=== PATIENT | male | born 1940 | race Caucasian/White ===

== ENCOUNTER 2017-06-25 14:09 | Observation (INO) ==
--- OUTSIDE RECORDS SUMMARY | 2017-06-25 14:57 | External Medical Summary ---
:1940 Author Organization e[employer] Care Team Providers Name Role Phone Bassam Barger Provider Role Unavailable Allergies No Known Allergies Problems Problem Type Condition Code Onset Dates Condition Status Problem Proteinuria 791.0 Active Assessment Other specified idiopathic 356.8 Active peripheral neuropathy Problem Esophageal reflux 530.81 Active Problem Need for prophylactic vaccination V04.89 Active and inoculation, Other viral diseases Problem Hypertension, benign 401.1 Active Problem Diabetes mellitus without mention of 250.02 Active complication, type II or unspecified type, uncontrolled Problem Unspecified essential hypertension 401.9 Active Problem Other specified idiopathic 356.8 Active peripheral neuropathy Problem Depressive disorder, not elsewhere 311 Active classified Medications Medication Code Code Instructions Start End Status Dosage System Date Date Fluoxetine HCl [facility] [id number] 10 Orally Once 1 capsule a day in the morning Glimepiride [facility] [id number] 4 Orally Once a TAKE ONE day TABLET BY MOUTH DAILY Gabapentin [facility] [id number] 100 Orally BID 2 caps Results No Known Results Summary Purpose eClinicalWorks Submission
[2017-06-25] MEDS ORDERED: SALINE FLUSH 10ml SYRINGE IVF PRN (14:59)
--- NOTE | 2017-06-25 14:59 | Emergency Department Report ---
General Adult HPI - General Chief complaint: Fall Stated complaint: fall to knees weak Lt hip Time Seen by Provider: 06/25/17 14:51 Source: patient, EMS Mode of arrival: EMS Limitations: no limitations - History of Present Illness HPI narrative: 77-year-old male presents to the emergency department with a chief complaint of increasing frequent falls over the past couple of weeks. Patient has had 3 falls today. He denies any pain or discomfort. Patient presents to the emergency department via EMS with his for further evaluation and treatment. Patient has no other complaints or associated symptoms at this time. He was at home when the incident occurred. He has been falling with increasing frequency over the past couple of weeks. is concerned that patient is a fall risk for serious injury at home. He denies striking his head , neck pain, or loss of consciousness. When the patient falls, he falls to his knees and is able to lower himself to the ground. - Related Data Home Medications Medication Instructions Recorded Confirmed Gabapentin 600 mg PO BID #0 04/03/16 06/25/17 Insulin Aspart [NovoLOG] 50 unit SQ BIDWM #0 05/27/16 06/25/17 Insulin Glargine,Hum.rec.anlog 60 unit SQ HS #0 05/27/16 06/25/17 [Lantus] Amlodipine [Norvasc] 5 mg PO DAILY 06/25/17 06/25/17 Fluoxetine HCl [Prozac] 40 mg PO DAILY 06/25/17 06/25/17 Lisinopril [Prinivil] 40 mg PO DAILY 06/25/17 06/25/17 Tamsulosin [Flomax] 0.4 mg PO HS 06/25/17 06/25/17 Allergies Allergy/AdvReac Type Severity Reaction Status Date / Time hydrocodone Allergy Intermediate ITCHING Verified 06/25/17 18:09 AND CONFUSION Review of Systems Constitutional: Reports: weakness (Generalized weakness). Denies: fever, chills Eyes: Denies: eye pain, vision change ENT: Denies: ear pain, throat pain Cardiovascular: Denies: chest pain, palpitations Respiratory: Denies: cough, dyspnea Gastrointestinal: Denies: abdominal pain, nausea, vomiting, diarrhea Genitourinary: Denies: urgency, dysuria Musculoskeletal: Denies: back pain, arthralgia Integumentary: Denies: erythema, rash Neurological: Denies: headache, numbness Psychiatric: Denies: anxiety, depression Endocrine: Denies: fatigue, heat or cold intolerance Hematological/Lymphatic: Denies: easy bruising, lymphadenopathy Allergic/Immunologic: Denies: urticaria, itchy eyes PFSH Patient Stated Medical History Peripheral Neuropathy Yes Hypertension Yes Diabetes Mellitus Type 1 Yes Depression Yes Bilateral Foot Drop Surgical History: Cholecystectomy. hemorrhoidectomy. Colonoscopy Family History: Reviewed and Noncontributory. - Social History Smoking status: Never smoker Substance use type: does not use Alcohol intake frequency: does not drink Physical Exam - Limitations Limitations: no limitations - General General appearance: alert, in no apparent distress - Normal Exams: Head:: Normocephalic without trauma Eyes:: Pupils are PERRLA w/ EOMI, No scleral icterus, irritation, or foreign bodies noted ENMT:: No facial trauma, nasal exudates, pharyngeal erythema, or exudates are noted Dental: No fractured, loose, or missing teeth noted Neck:: Full range of motion (no midline tenderness or deformity of the cervical spine.), without adenopathy, JVD, bruits or thyromegaly Chest/Respirations:: Clear all rizzo, with good airflow, and symmetry bilaterally Cardiovascular:: Regular rate and rhythm, without murmur or gallop, Pulses 2+ all extremities, capillary refill, <2 seconds all extremities Abdomen:: Bowel sounds positive, soft, non-tender, non-distended, no hepatosplenomegaly, masses or bruits noted Lymphatic:: No lymphadenopathy, or lymphedema noted Musculoskeletal:: No tenderness (no midline tenderness of the thoracic/lumbar spine. Pelvis is stable and nontender to compression.), or deformity noted, good range of motion, all extremities Integumentary:: No rashes, hives, or bruising noted, hair and nails, without abnormality Neurological:: Patient is alert, and oriented, cranial nerves, motor/sensory/ cerebellar, exams w/o gross deficits, to observation (+ chronic bilateral foot drop otherwise neurologically intact. ) Psychiatric:: Patient exhibits, appropriate attention, emotion and affect Course Vital Signs Temperature 98.2 F 06/25/17 14:15 Pulse Rate 92 06/25/17 14:15 Respiratory Rate 20 06/25/17 14:15 Blood Pressure 113/64 06/25/17 14:15 Pulse Oximetry 93 06/25/17 14:15 Temperature 95.6 F L 06/25/17 17:57 Pulse Rate 86 06/25/17 17:57 Respiratory Rate 18 06/25/17 17:57 Blood Pressure 163/94 H 06/25/17 17:57 Pulse Oximetry 95 06/25/17 17:57 Medical Decision Making - MDM Narrative Medical decision making narrative: Labs / Imaging were discussed in detail with the patient and family and questions are answered. Patient's is not comfortable taking the patient home as he has fallen multiple times today alone. Patient is given 500 mL of normal saline intravenously in the ED. patient is reviewed with Dr. Dalia Cavanaugh and accepted to her service for further evaluation and treatment. Patient is admitted to the hospital in improved condition. No further orders from accepting physician who is in agreement with the current plan of management. Patient declined offered analgesic pain medication in the emergency department. No source of infection at this time for antibiotic therapy at the time of admission to the hospital. UA is pending at the time of admission and will be followed by accepting physician. - Differential Diagnosis generalized weakness, dehydration, metabolic disorder, UTI, pneumonia - Lab Data Result diagrams: 06/25/17 15:36 06/25/17 15:36 Lab Results 06/25/17 06/25/17 Range/Units 15:36 15:36 WBC 5.5 (4.5-11.0) T/MM3 RBC 3.97 L (4.50-5.90) M/MM3 Hgb 12.7 L (13.5-17.5) GM/DL Hct 36.9 L (41-53) % MCV 92.9 (80-100) UM3 MCH 32.0 (26-34) UUG MCHC 34.4 (31-37) GM/DL RDW Std Deviation 41.3 (36.9-50.2) FL Plt Count 166 (130-400) T/MM3 MPV 9.3 L (9.4-12.4) UM3 Immature Gran % (Auto) 0.2 (0.0-0.5) % Neut % (Auto) 62.4 (33-66) % Lymph % (Auto) 25.5 (23-45) % Schleicher % (Auto) 7.7 (0-9.0) % Eos % (Auto) 3.3 (0-4) % Baso % (Auto) 0.9 (0-2) % Neut # (Auto) 3.4 (1.8-7.7) T/MM3 Lymph # (Auto) 1.4 (1-4.8) T/MM3 Schleicher # (Auto) 0.4 (0-0.8) T/MM3 Eos # (Auto) 0.2 (0-0.5) T/MM3 Baso # (Auto) 0.1 (0-0.2) T/MM3 Abs Immat Gran (auto) 0.01 (0.00-0.03) T/MM3 Turbidity < 20 (0-20) Sodium 139 (134-144) MEQ/L Potassium 4.3 (3.6-5) MEQ/L Chloride 101 (98-107) MEQ/L Carbon Dioxide 24 (22-30) MEQ/L Anion Gap 14 (5-15) MEQ/L BUN 21.0 H (9-20) MG/DL Creatinine 1.0 (0.8-1.5) mg/dL GFR Calculation 72 BUN/Creatinine Ratio 21 (6-26) RATIO Glucose 387 H (75-110) MG/DL Calculated Osmolality 287 H (261-280) MOSM/KG Calcium 9.3 (8.4-10.2) MG/DL Total Bilirubin 0.80 (0.20-1.30) MG/DL Icterus Index < 2 (0-7) AST 22 (17-59) U/L ALT 25 (1-50) U/L Alkaline Phosphatase 107 (38-126) U/L Troponin I < 0.012 (0-0.12) ng/ml Total Protein 6.9 (6.3-8.2) g/dL Albumin 3.6 (3.5-5.0) g/dL Globulin 3.3 (2.4-3.6) G/DL Albumin/Globulin Ratio 1.1 (1.1-2.2) RATIO Specimen Hemolysis < 15 (0-25) - Radiology Data CT Head - No acute processes. CXR - No acute processes. Pelvis XR - No acute processes. Bilateral Knee X-rays - Declined by patient. - EKG Data EKG #1 EKG results narrative: Sinus rhythm. 75 bpm. No STEMI. Normal EKG. Disposition Clinical Impression: Generalized weakness Disposition: 02 To [facility] Condition: Stable Time of Disposition: 16:20 (Admit. Dr. Cavanaugh. ) - Seen By: physician
--- NOTE | 2017-06-25 15:30 | CT Scan Report ---
Indication: frequent falls. PROCEDURE: CT head/brain wo con: Encounter: Initial Comparison: April 03, 2016 Technique: Axial CT images through the head were performed without contrast. Iterative Reconstruction dose reducing technique was utilized. FINDINGS: The ventricles are of normal size, shape, and configuration for the patient's age. There is no evidence of acute intracranial hemorrhage, midline displacement, or mass effect. There are multiple areas of low attenuation in the white matter which most likely represent changes of chronic microvascular ischemia. This has progressed from the comparison. The CT attenuation of the brain parenchyma is otherwise normal within the cerebellum, brain stem, and cerebral hemispheres. The tympanic cavities and mastoid air cells are free of appreciable disease. There are no definite fractures of the skull base, calvarium, or visualized portion of the midface. Right mastoid surgery. Small bilateral mastoid effusions. IMPRESSION: No CT evidence of acute traumatic intracranial injury. .
--- NOTE | 2017-06-25 15:36 | XRay Report ---
Indication: fall, pain PROCEDURE: XR pelvis 1-2V: Encounter: Initial Comparison: None Findings: There is no acute fracture, dislocation or malalignment identified. Impression: No acute osseous abnormality. .
--- NOTE | 2017-06-25 15:37 | XRay Report ---
Indication: weakness PROCEDURE: XR chest 1V: Encounter: Initial Comparison: October 28, 2016 FINDINGS: The lungs are clear. There is no abnormal airspace opacity, pleural effusion or pneumothorax identified. The heart size and mediastinum are within normal limits. No significant skeletal abnormality is seen. IMPRESSION: No acute cardiopulmonary abnormality. .
--- NOTE | 2017-06-25 17:30 | History & Physical Report ---
History of Present Illness Date: 06/25/17 Chief complaint: frequent falls HPI: Patient is a 77-year-old male who presents to the emergency room with frequent falls over the last 2 weeks. He has fallen 3 times today. He states that approximately 2 months ago he had a fall and ever since then he feels like his left hip "goes weak" and his left leg just gives out from underneath him. He usually walks with a walker. He lives at home independently with his . He does not have any lightheadedness or dizziness. He does have some pain from an abrasion on the right knee from his fall today. He does have peripheral neuropathy related to his diabetes. Review of Systems All systems PM: 10-point ROS was reviewed, no additional remarkable complaints except (R knee abrasion, chronic skin ulcerations, vitiligo, frequent falls) Past Medical History Patient Stated Medical History Peripheral Neuropathy Yes Hypertension Yes Diabetes Mellitus Type 2 Yes Depression Yes Medical History Updates: HLD Surgical History: cholecystectomy, tympanostomy and revision of tympanostomy right ear (due to chronic otitis media), hemorrhoidectomy Family History: Positive family history of diabetes Family History Updates: Reviewed. - Social History Smoking status: Former smoker Substance use type: does not use Alcohol intake frequency: does not drink Household members: spouse Current occupational status: retired Previous occupational history: owned [employer] Current residence: Apartment/Private Home Social history: Luisa Perez - PCP Medications Home Medications Medication Instructions Recorded Confirmed Type Gabapentin 600 mg PO BID #0 04/03/16 06/25/17 History Insulin Aspart [NovoLOG] 50 unit SQ BIDWM #0 05/27/16 06/25/17 History Insulin Glargine,Hum.rec.anlog 60 unit SQ HS #0 05/27/16 06/25/17 History [Lantus] Amlodipine [Norvasc] 5 mg PO DAILY 06/25/17 06/25/17 History Fluoxetine HCl [Prozac] 40 mg PO DAILY 06/25/17 06/25/17 History Lisinopril [Prinivil] 40 mg PO DAILY 06/25/17 06/25/17 History Tamsulosin [Flomax] 0.4 mg PO HS 06/25/17 06/25/17 History Allergies Allergy/AdvReac Type Severity Reaction Status Date / Time hydrocodone Allergy Intermediate ITCHING Verified 06/25/17 18:09 AND CONFUSION Exam Vital Signs: Temperature 98.2 F 06/25/17 14:15 Pulse Rate 74 06/25/17 16:15 Respiratory Rate 20 06/25/17 16:01 Blood Pressure 147/70 H 06/25/17 16:15 Pulse Oximetry 90 06/25/17 16:15 Height/Weight/BMI: Height 1.83 m Weight 104.5 kg - Constitutional Present: no acute distress, well nourished, well developed - Routine HEENT Exam Head: Present: normocephalic, atraumatic Eye: Present: EOMI, PERRL ENT: Present: mucous membranes moist, oropharynx clear - Routine Neck Exam Present: supple. Absent: lymphadenopathy, thyromegaly - Routine Respiratory Exam Present: CTA bilaterally. Absent: wheezes - Routine Cardiovascular Exam Present: RRR, no murmur - Routine Abdominal Exam Present: soft, normoactive bowel sounds, surgical scars. Absent: tenderness, distended - Routine Extremities Exam Present: normal capillary refill Comments: mild swelling of L foot and ankle. None to R. - Routine Skin Exam Present: dry, warm, vitiligo (to arms and chest, several ulcerations with scabs on arms, chest and 1 on R ant tibia. Dry skin and excoriation to LE's) - Routine Neurological Exam Present: alert, oriented X3, CN II-XII intact, moving all extremities, normal speech. Absent: motor deficit decreased sensation to feet b/l - Routine Psychiatric Exam Present: normal affect, cooperative Results - Labs CBC & Chem 7: 06/25/17 15:36 06/25/17 15:36 - Imaging and Cardiology CT scan - head Additional comments: Date of Exam: 06/25/17 Indication: frequent falls. PROCEDURE: CT head/brain wo con: FINDINGS: The ventricles are of normal size, shape, and configuration for the patient's age. There is no evidence of acute intracranial hemorrhage, midline displacement, or mass effect. There are multiple areas of low attenuation in the white matter which most likely represent changes of chronic microvascular ischemia. This has progressed from the comparison. The CT attenuation of the brain parenchyma is otherwise normal within the cerebellum, brain stem, and cerebral hemispheres. The tympanic cavities and mastoid air cells are free of appreciable disease. There are no definite fractures of the skull base, calvarium, or visualized portion of the midface. Right mastoid surgery. Small bilateral mastoid effusions. IMPRESSION: No CT evidence of acute traumatic intracranial injury. Chest x-ray Additional comments: Date of Exam: 06/25/17 Indication: weakness PROCEDURE: XR chest 1V: FINDINGS: The lungs are clear. There is no abnormal airspace opacity, pleural effusion or pneumothorax identified. The heart size and mediastinum are within normal limits. No significant skeletal abnormality is seen. IMPRESSION: No acute cardiopulmonary abnormality. pelvis xray Additional comments: Date of Exam: 06/25/17 Indication: fall, pain PROCEDURE: XR pelvis 1-2V: Findings: There is no acute fracture, dislocation or malalignment identified. Impression: No acute osseous abnormality. Assessment and Plan (1) Frequent falls Current visit: Yes Status: Acute (2) Diabetes mellitus Current visit: Yes Status: Acute Assessment and Plan: Assessment Frequent falls Diabetes mellitus-chronic insulin Hypertension BPH Osteoarthritis Vitiligo-question etiology Diabetic neuropathy Obesity (BMI 31.2) Plan Admit, observation, under the hospitalist service, Dr. Cavanaugh attending. Imaging and labs performed in ED reviewed. UA pending. PT/OT consults. IRU screen. Accu-Cheks. Diabetic diet. Continue home insulin. Consult wound clinic given the nonhealing wound on his lower right leg. Patient was bolused 500 mL normal saline in the emergency room. Patient has been eating and drinking well, no reason to continue IVF at this time. Continue amlodipine and lisinopril for blood pressure, tamsulosin for BPH, gabapentin for neuropathy. SCDs for DVT prophylaxis. Patient requests DO NOT RESUSCITATE CODE STATUS. Care to return to [facility] upon discharge. 06/25/2017-7:25 PM-I reviewed this chart, the patient history, and the [employer]'s/PA 's documented findings as above. We discussed and formulated the assessment and plan as above with the additions below.-Dr. Cavanaugh Patient was seen earlier this evening in his room. He states that he has had increased falls for the past 1 month and states that it always feels like his left leg in the hip area gives out on him and causes him to fall. He has chronic neuropathy with numbness and tingling and pain from his knees down to his feet. He denies any low back pain other than some mild pain in his right low back after one of his falls this past weekend. He denies feeling lightheaded when he falls. He has never lost consciousness or hit his head. He has been well this past winter and has avoided the flu and other respiratory and GI infections. He states he has been taking all of his medications as directed. He states that his right heel has been painful for a couple of months. He states he had a x-ray of his heel to rule out foreign body and this was negative. The patient states he will do anything that we recommend because he wants to get better and be able to go camping in his trailer which she has not been able to do for a couple of years. On exam he is alert and oriented and in no acute distress. HEENT reveals pupils to be equal round and reactive. Oropharynx is moist. Neck is supple. Chest is clear to auscultation. Cardiovascular reveals a regular rate and rhythm. Abdomen is soft, nontender, nondistended with positive bowel sounds. Extremities are free of clubbing, cyanosis or edema. Skin is warm and dry. He has some abrasions on his arms and legs, likely from his falls. Lab above was reviewed. TSH is normal at 2.26. Impression and plan Frequent falls with the patient stating his left leg is giving out on him, of undetermined etiology. Consult PT OT. Check B-12 level. Consider neurology consult. Agree with IRU consult. Regarding diabetes, will check hemoglobin A1c, monitor Accu-Cheks, and continue usual home insulin Regarding nonhealing wounds and abrasions and right heel pain, will consult wound and skin DVT Prophylaxis: SCD's Resuscitation Status: Do Not Resuscitate - Physician Narrative Physician: Dalia Cavanaugh MD Narrative: Date: 06/25/17 Time: 1723 Hospital Course Summary Disclaimer: The visit summary below is not to be considered part of the above Progress Note. Hospital Course: 06/25/17-hospital admission Admit, observation, under the hospitalist service, Dr. Cavanaugh attending. Imaging and labs performed in ED reviewed. UA pending. PT/OT consults. IRU screen. Accu-Cheks. Diabetic diet. Continue home insulin. Consult wound clinic given the nonhealing wound on his lower right leg. Patient was bolused 500 mL normal saline in the emergency room. Patient has been eating and drinking well, no reason to continue IVF at this time. Continue amlodipine and lisinopril for blood pressure, tamsulosin for BPH, gabapentin for neuropathy. SCDs for DVT prophylaxis. Patient requests DO NOT RESUSCITATE CODE STATUS. Care to return to [facility] upon discharge.
[2017-06-25] MEDS: INSULIN ASPART 100unit/ml INJECTION SQ SCH (19:05)
[2017-06-25] MEDS: POM GABAPENTIN 300 MG CAPSULE PO SCH (22:03)
[2017-06-25] MEDS: INSULIN GLARGINE 100unit/ml INJECTION SQ SCH (22:03)
[2017-06-25] MEDS: POM TAMSULOSIN 0.4 MG CAPSULE PO SCH (22:04)
[2017-06-26] MEDS ORDERED: INSULIN ASPART 100unit/ml INJECTION SQ SCH (08:00)
[2017-06-26] MEDS: POM LISINOPRIL 40 MG TABLET PO SCH (08:37)
[2017-06-26] MEDS: POM AMLODIPINE 5 MG TABLET PO SCH (08:37)
[2017-06-26] MEDS: FLUOXETINE HCL 40 MG PO SCH (08:37)
[2017-06-26] MEDS: INSULIN ASPART 100unit/ml INJECTION SQ SCH ×2 (08:38→18:17)
[2017-06-26] MEDS: POM GABAPENTIN 300 MG CAPSULE PO SCH ×2 (08:38→21:43)
[2017-06-26] MEDS ORDERED: GLUCOSE ORAL GEL 40% 37.5gm PO PRN (12:37)
[2017-06-26] MEDS ORDERED: INSULIN ASPART 100unit/ml INJECTION SQ PRN (12:37)
[2017-06-26] MEDS ORDERED: DEXTROSE 50% SYRINGE 50ml (1 AMP) IVP PRN (12:37)
--- NOTE | 2017-06-26 13:08 | Progress Note ---
- Date 06/26/17 Subjective: The patient was seen today in his room. He states he is feeling ok except for some left leg weakness and occasional left thigh pain. He denies pain elsewhere. He denies any shortness of breath. He is eating and drinking well. He has no other complaints. Dr. Blackman did see him earlier today and suspects his left leg weakness may be a diabetic lumbosacral plexopathy or a similar variant. He is recommending prednisone taper. The patient is agreeable to this. Objective Vital signs: Temperature 96.1 F L 06/26/17 07:15 Pulse Rate 97 06/26/17 07:17 Respiratory Rate 18 06/26/17 07:17 Blood Pressure 120/65 06/26/17 07:17 Pulse Oximetry 92 06/26/17 07:17 Height/Weight/BMI: Height 1.85 m Weight 105.1 kg Body Mass Index 30.4 Comments: Afebrile, heart rate 97, blood pressure 120/65, O2 sat 92% on room air GEN-alert, oriented, no acute distress CV-regular rate and rhythm CHEST-clear to auscultation bilaterally ABD-soft, nontender with positive bowel sounds -no [place] EXT-no edema NEURO-significant for left leg weakness SKIN-skin abrasions present Results - Labs CBC & Chem 7: 06/26/17 04:02 06/26/17 04:02 Labs: Blood sugar this morning was down to 107. TSH is normal at 2.26. vitamin B-12 is 426. Hemoglobin A1c 7.1. 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 Blackman Diabetes mellitus-chronic insulin-A1c shows good control at 7.1 Hypertension -fair control BPH Osteoarthritis Vitiligo-question etiology Diabetic neuropathy Obesity (BMI 31.2) Impression and plan Dr. Blackman did see the patient and was concerned for possible diabetic lumbosacral plexopathy. He is recommending prednisone 30 mg once daily for a week then 20 mg once daily for a week then 10 mg once daily for a week and then stop. He stated that if the patient's weakness improved and then worsened with a decrease in steroids, one could extend steroids for a longer period of time. PT and OT did see the patient and recommend either inpatient rehabilitation versus intermediate. I did discuss the above with case management and she has put in a request to the patient's insurance and is waiting to hear back. The patient is willing to go to either inpatient rehabilitation or [facility] based on what his insurance will cover. We'll need to monitor blood sugars and give supplemental insulin if he is hyperglycemic. May need to increase Lantus insulin. Continue with physical therapy for now. We'll obtain a lumbar x-ray to rule out significant spinal abnormality that could cause weakness, but doubt we'll find anything significant considering that he does not have low back pain. DVT Prophylaxis: Lovenox Resuscitation Status: Do Not Resuscitate - Physician Narrative Narrative: Date: 06/26/17 Time: 1305 Hospital Course Summary Disclaimer: The visit summary below is not to be considered part of the above Progress Note. Hospital Course: 06/25/17-hospital admission Admit, observation, under the hospitalist service, Dr. Cavanaugh attending. Imaging and labs performed in ED reviewed. UA pending. PT/OT consults. IRU screen. Accu-Cheks. Diabetic diet. Continue home insulin. Consult wound clinic given the nonhealing wound on his lower right leg. Patient was bolused 500 mL normal saline in the emergency room. Patient has been eating and drinking well, no reason to continue IVF at this time. Continue amlodipine and lisinopril for blood pressure, tamsulosin for BPH, gabapentin for neuropathy. SCDs for DVT prophylaxis. Patient requests DO NOT RESUSCITATE CODE STATUS. Care to return to [facility] upon discharge.
[2017-06-26] MEDS: ENOXAPARIN 40 MG/0.4 ML INJECTION SQ SCH (13:54)
[2017-06-26] MEDS: PredniSONE 10 MG TABLET PO SCH (13:54)
--- NOTE | 2017-06-26 14:29 | XRay Report ---
Indication: left leg weakness, PROCEDURE: XR lumbar spine 2-3V: Encounter: Initial Comparison: None Findings: Alignment of the lumbar spine is within normal limits. No acute fracture or subluxation. 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 Vertebral body heights are maintained. No significant disk space narrowing. Degenerative facet disease at L5-S1. Impression: No acute osseous abnormality. .
--- NOTE | 2017-06-26 14:36 | Wound Care Progress Note ---
Wound Center Progress Note: Pt seen for wound consultation r/t R anterior lower leg wound. Pt sitting in recliner, legs elevated watching TV. No complaints of leg pain. Pt reports his legs feel tired and heavy. Pt has had this wound for 2-3 months. At home he was applying Neosporin and a band aid; reports it has healed in the past but "keeps opening back up." Wound to R anterior lower leg appears to be a venous stasis ulcer. Wound bed: pink non-granulating tissue, scant dried serosanguineous drainage on inside of SCD, no active drainage. Periwound: blanchable erythema, edema +1. Wound dressing: Apply Aquacel Ag to wound bed, cover with Mepilex border, change q 3 days. Elevate legs while sitting in chair and in bed.
--- NOTE | 2017-06-26 14:39 | Wound Care Progress Note ---
Wound Management - Patient Status Premedicated Prior to Dressing Change: No - Wound Right Anterior Leg Wound Type: Venous stasis ulcer Wound Present on Admission?: Yes Length: 1.3 Width: 1.1 Depth: 0.1 Wound Bed Appearance: Abrams, Pale Jenny Wound Appearance: Abrams Tunneling: No Undermining: No Drainage Description: Sanguineous Drainage Amount: Scant Drainage Odor: No Odor Dressing Status: Changed Primary Dressing: Silver Dressing Secondary Dressing: Foam Dressing Dressing Change Date: 06/26/17 Dressing Change Time: 14:30 Dressing Change Patient Tolerance: Tolerated Well (Dressings: Aquacel Ag/Mepilex , change q 3 days, elevate legs.)
[2017-06-26 15:38] VITALS: BMI 30.5
--- NOTE | 2017-06-26 18:13 | Consultation ---
DATE OF CONSULTATION 06/26/[address] Cavanaugh CHIEF COMPLAINT Leg weakness, gait problem. HISTORY OF PRESENT ILLNESS The patient is a 77-year-old male with history of diabetic neuropathy, bilateral foot drop, weakness and numbness in all extremities. He has had progressive weakness in his proximal lower extremity muscles for the past three weeks. This has led to multiple falls. This has been worse on the left compared to the right. The patient is concerned about having a hip problem which was ruled out with normal x-rays of his hips. The patient denies having significant lower back pain. He denies having any dizziness or loss of consciousness upon falling. Patient's diabetes has been fairly controlled with medication and insulin. His last INR was 7.1. His blood pressure has been in the 150/100 range. On physical examination the patient was awake, alert, oriented x 3. Pupils were round, reactive and equal. Extraocular muscles were intact. Visual field was full. Speech was fluent. Motor examination in the upper extremities was 4 to 4+/5, weaker in the hands. In his lower extremities his hip flexion was 3/5 on the left, 4/5 on the right. Leg extension was 3/5 on the left, 4/5 on the right. Ankle dorsiflexion and plantar flexion were 2/5 bilaterally. Sensory examination was limited to light touch and pinprick up to the thighs in the lower extremities and up to the elbows in the upper extremities. Deep tendon reflexes were 2-/4 and absent in the ankles. Coordination for [id number] were both slow and borderline bilaterally. ASSESSMENT Progressive proximal lower extremity weakness associated with history of diabetic neuropathy. This can be a manifestation of diabetic lumbosacral plexopathy. Other considerations include severe lumbosacral spondylosis and spinal stenosis which is less likely in this clinical setting. PLAN 1. Start patient on prednisone 30 mg p.o. q.d. for at least one week, then titrate down to 20 mg p.o. q.d. for a week, then 10 mg p.o. q.d. for a week. The patient can go up to the higher dosage if having worse weakness upon lowering the dosage of prednisone. 2. Obtain x-ray of his lumbar spine to rule out any structural problem. 3. The patient would benefit from having physical and occupational therapy and possible rehab admission. [facility]
[2017-06-26] MEDS: POM TAMSULOSIN 0.4 MG CAPSULE PO SCH (21:44)
[2017-06-26] MEDS: INSULIN GLARGINE 100unit/ml INJECTION SQ SCH (21:57)
[2017-06-27 07:46] VITALS: RESP 18; TEMP 97.2; O2SAT 95
[2017-06-27] MEDS: POM AMLODIPINE 5 MG TABLET PO SCH (08:23)
[2017-06-27] MEDS: FLUOXETINE HCL 40 MG PO SCH (08:24)
[2017-06-27] MEDS: POM GABAPENTIN 300 MG CAPSULE PO SCH (08:25)
[2017-06-27] MEDS: POM LISINOPRIL 40 MG TABLET PO SCH (08:25)
[2017-06-27] MEDS: PredniSONE 10 MG TABLET PO SCH (08:26)
[2017-06-27] MEDS: INSULIN ASPART 100unit/ml INJECTION SQ SCH (08:26)
[2017-06-27] MEDS: ENOXAPARIN 40 MG/0.4 ML INJECTION SQ SCH (08:30)
[2017-06-27 10:58] VITALS: BP 123/67; PULSE 83
--- NOTE | 2017-06-27 12:25 | Discharge Summary ---
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 Blackman Diabetes mellitus-chronic insulin-A1c shows good control at 7.1 Hypertension -fair control BPH Osteoarthritis Vitiligo-question etiology Diabetic neuropathy Obesity (BMI 31.2) - Laboratory Labs: 06/26/17 04:02 06/26/17 04:02 - Radiology Radiology: Date of Exam: 06/26/17 PROCEDURE: XR lumbar spine 2-3V: Findings: Alignment of the lumbar spine is within normal limits. No acute fracture or subluxation. 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 Vertebral body heights are maintained. No significant disk space narrowing. Degenerative facet disease at L5-S1. Impression: No acute osseous abnormality. Date of Exam: 06/25/17 PROCEDURE: XR pelvis 1-2V: Findings: There is no acute fracture, dislocation or malalignment identified. Impression: No acute osseous abnormality. Date of Exam: 06/25/17 PROCEDURE: XR chest 1V: FINDINGS: The lungs are clear. There is no abnormal airspace opacity, pleural effusion or pneumothorax identified. The heart size and mediastinum are within normal limits. No significant skeletal abnormality is seen. IMPRESSION: No acute cardiopulmonary abnormality. Date of Exam: 06/25/17 PROCEDURE: CT head/brain wo con: FINDINGS: The ventricles are of normal size, shape, and configuration for the patient's age. There is no evidence of acute intracranial hemorrhage, midline displacement, or mass effect. There are multiple areas of low attenuation in the white matter which most likely represent changes of chronic microvascular ischemia. This has progressed from the comparison. The CT attenuation of the brain parenchyma is otherwise normal within the cerebellum, brain stem, and cerebral hemispheres. The tympanic cavities and mastoid air cells are free of appreciable disease. There are no definite fractures of the skull base, calvarium, or visualized portion of the midface. Right mastoid surgery. Small bilateral mastoid effusions. IMPRESSION: No CT evidence of acute traumatic intracranial injury. History of Present Illness HPI: Patient is a 77-year-old male who presents to the emergency room with frequent falls over the last 2 weeks. He has fallen 3 times today. He states that approximately 2 months ago he had a fall and ever since then he feels like his left hip "goes weak" and his left leg just gives out from underneath him. He usually walks with a walker. He lives at home independently with his . He does not have any lightheadedness or dizziness. He does have some pain from an abrasion on the right knee from his fall today. He does have peripheral neuropathy related to his diabetes. Objective Vital signs: Temperature 97.2 F 06/27/17 07:44 Pulse Rate 83 06/27/17 10:56 Respiratory Rate 18 06/27/17 07:44 Blood Pressure 123/67 06/27/17 10:56 Pulse Oximetry 95 06/27/17 07:44 Height/Weight/BMI: Height 1.85 m Weight 105.1 kg Body Mass Index 30.5 - Constitutional Present: no acute distress, well nourished, well developed - Routine HEENT Exam Head: Present: normocephalic Eye: Absent: conjunctival icterus, scleral injection ENT: Present: mucous membranes moist - Routine Respiratory Exam Present: CTA bilaterally - Routine Cardiovascular Exam Present: RRR, S1, S2 - Routine Abdominal Exam Present: soft, normoactive bowel sounds, non distended, non tender - Routine Extremities Exam Present: pulses intact, normal capillary refill - Routine Musculoskeletal Exam Musculoskeletal: Present: moving extremities well - Routine Skin Exam Present: intact, dry, warm, wounds (new open lesion on right forearm after showering this morning. States a scab was accidentally removed. There are 2 dressings to his RLE.) - Routine Neurological Exam Present: alert, oriented X3, normal speech - Routine Psychiatric Exam Present: normal affect, normal thought process, cooperative Hospital Course This is a general summary of the patient's hospital course. For more details refer to the complete medical record. Hospital course: 06/25/17-Hospital admission Admitted for frequent falls. X-rays and CT head were negative for acute findings. PT/OT & Dr. Blackman were consulted. Wound team also consulted for a nonhealing wound on his lower right leg. Home meds were continued. Hgb A1c was 7.1%. 06/26/17 Dr. Blackman was concerned for possible diabetic lumbosacral plexopathy. He recommends prednisone 30 mg once daily for a week then 20 mg once daily for a week then 10 mg once daily for a week and then stop. If the patient's weakness improved and then worsened with a decrease in steroids, one could extend steroids for a longer period of time. PT and OT recommended either inpatient rehabilitation versus penitentiary. 06/26/17-Discharge to SNF ([facility]) Medically stable for discharge. Continue with monitoring accuchecks - may need insulin titration especially on extended course of steroids. Wounds: Apply aquacel silver + Mepilex to wounds on leg, and change Q3d and PRN. For the abrasion on his right arm, apply Mepilex and change Q3d and PRN. Elevate legs while sitting and while in bed. Check blood sugar before meals and before bedtime. Use sliding scale in addition to routine insulin: 150-199 give 2 units. 200-249 give 3 units. 250- 299 give 5 units. 300-349 give 7 units. 350-399 give 8 units and call provider. F/U with Pardeep Perez APRN in 1 week. F/U with wound care for nonhealing wound. Time spent with patient: discharge greater than 30 minutes Resuscitation Status: Do Not Resuscitate Discharge Plan - Discharge Disposition Discharge Date: 06/27/17 Disposition: 03 To [facility] Not [facility] ([facility]) *Condition: Stable Reason For Visit (Visit label in EMR): Frequent falls - Discharge Medications *Discharge Medications: New PredniSONE [Deltasone 10 mg] 30 mg PO WB #36 tab Aspirin 1 tab PO DAILY #30 tab Insulin Aspart [NovoLOG] 2 - 8 unit SQ SS PRN vial PRN Reason: Hyperglycemia Continue Gabapentin 600 mg PO BID #0 Insulin Aspart [NovoLOG] 50 unit SQ BIDWM #0 Fluoxetine HCl [Prozac] 40 mg PO DAILY Amlodipine [Norvasc] 5 mg PO DAILY Tamsulosin [Flomax] 0.4 mg PO HS Lisinopril [Prinivil] 40 mg PO DAILY Insulin Glargine,Hum.rec.anlog [Lantus] 60 unit SQ HS #0 - Discharge Packet/Instructions *Diet: Carbohydrate consistent *Activity: PT/OT. Use walker *Pain Management/Treatment: Gabapentin *Wound Care: Wounds: Apply aquacel silver + Mepilex to wounds on leg, and change Q3d and PRN. For the abrasion on his right arm, apply Mepilex and change Q3d and PRN. Elevate legs while sitting and while in bed. Additional Instructions: Check blood sugar before meals and before bedtime. Use sliding scale in addition to routine insulin: 150-199 give 2 units. 200-249 give 3 units. 250-299 give 5 units. 300-349 give 7 units. 350-399 give 8 units and call provider. *Expected Signs/Symptoms: Weakness should gradually improve with therapy. Your wounds may take quite some time to completely heal. *Notify Physician if: fever, signs of wound infection or cellulitis, stroke likey symptoms, difficulty breathing, chest pain, passing out, more frequent falls, or any new concerns. *During Business Hours Contact: Pardeep Perez APRN at [facility] *After Business Hours Contact: The network control supervisor provider for Pardeep Perez. *Pending Lab/Results: No Pending Lab - Referrals/Follow Up *Referrals/Follow Up: Luisa Perez APRN [Family Provider] - 1 Week Wound Care,[facility] [Non-Staff] - 2 Weeks - Patient Handouts Patient Handouts: Weakness (DC) - Dismissal Complete Discharge Instructions are:: Complete Physician Narrative - Narrative Physician: Dalia Cavanaugh MD Attestation Narrative: Date: 06/27/17 Time: 1:30pm I reviewed this chart, the patient history, and the [employer]MONIA WORKER's/PA's documented findings as above. We discussed and formulated the assessment and plan as above with the additions below.-Dr. Cavanaugh Patient was seen this afternoon in his room. He states he's feeling well. He is ready for discharge. His weakness is about the same. He was just started on prednisone yesterday. His nurse noted some swelling in his left ankle and foot last night. This was also noted on admission. He does have some bruising in the left ankle and the patient states that he thinks he twisted it when he fell. He is able to walk on it without difficulties and it is not painful at this time. He has no swelling in the calf or thigh. There is no tenderness in the calf or thigh. The patient is eating and drinking well. He has no complaints. On exam he is alert and in no acute distress. Chest is clear to auscultation. Cardiovascular reveals a regular rate and rhythm. Abdomen is soft and nontender. Extremities are free of edema other than in the left ankle as described above. 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 Blackman. Will continue the patient's usual home insulin regarding his diabetes and sliding scale insulin has been ordered if he has hyperglycemia related to prednisone. Because of his long-standing diabetes, will add aspirin 81 mg once daily. The patient appears stable for transfer to penit[facility] today for rehabilitation.
--- NOTE | 2017-06-27 12:51 | Extended Care Facility Orders ---
<AriannaCarri D - Last Filed: 06/27/17 13:01> Admission Orders Admit to:: Detention Allergies/Adverse Reactions: Allergies hydrocodone Allergy (Intermediate, Verified 06/25/17 18:09) ITCHING AND CONFUSION Admitting Diagnosis: Frequent falls Admitting Physician: Dalia Cavanaugh MD Attending Physician: Dalia Cavanaugh MD Code Status: Do Not Resuscitate Anticiapted Length of Stay: 30 days or less Rehab Potential: fair Rehab Prognosis: fair Diet: Consistent Carbohydrate Diet [DIET] Calorie Level: 1999 Wound/Incision Care: Apply aquacel silver + Mepilex to wounds on leg, and change Q3d and PRN. For the abrasion on his right arm, apply Mepilex and change Q3d and PRN. Elevate legs while sitting and while in bed. Evaluations/Treatment: PT, OT, as needed Detention Certification: I certify that SNF services are required to be given on an Inpatient basis because of the patient's need for snf care on a continuing basis for the condition(s) for which he received inpatient hospital services prior to his transfer to the SNF. SNF inpatient care is necessary for the following reasons Indication for Detention: Wound Care/Assessment, Diabetic Assessment - Additional Information In Event of Arrest: Do Not Start CPR Resident is Aware of Diagnosis: Yes Referrals: Luisa Perez APRN [Family Provider] - 1 Week Wound Care,[facility] [Non-Staff] - 2 Weeks Additional Orders: Additional Instructions: Check blood sugar before meals and before bedtime. Use sliding scale in addition to routine insulin: 150-199 give 2 units. 200-249 give 3 units. 250-299 give 5 units. 300-349 give 7 units. 350-399 give 8 units and call provider. Steroid taper: give 30 mg daily x 5 days, then 20 mg daily x 7 days, then 10 mg daily x 7 days. <Dalia Cavanaugh - Last Filed: 06/27/17 13:27> Admission Orders Admitting Diagnosis: Frequent falls Admitting Physician: Dalia Cavanaugh MD Attending Physician: Dalia Cavanaugh MD Code Status: Do Not Resuscitate Diet: 06/25/17 Dinner Consistent Carbohydrate Diet [DIET] Calorie Level: 1999 Detention Certification: I certify that SNF services are required to be given on an Inpatient basis because of the patients need for snf care on a continuing basis for the condition(s) for which he/she received inpatient hospital services prior to his/her transfer to the SNF. SNF inpatient care is necessary for the following reasons
== END 2017-06-27 14:49 ==
LOC: ED 14:09 → MED 14:09
PROVIDERS: ADMIT Internal Medicine; ATTEND Internal Medicine